=== PATIENT | female | born 1990 | race Caucasian/White ===

== ENCOUNTER 2018-01-25 20:10 | Emergency (ER) | payer MEDICAID ==
--- NOTE | 2018-01-25 21:23 | ED PDOC ---
Arrival/HPI - General Chief Complaint: Female Genitourinary Time Seen by Provider: 01/25/18 20:25 - History of Present Illness Narrative History of Present Illness (Text): 01/25/18 21:21 Patient is a 27 year old female who is P:2, who presents to Emergency department complaining of vaginal spotting which began today and with associated lower abdominal cramp like discomfort. Patient denies any urinary complaints. She also denies any fever, chills, nausea, vomiting, or diarrhea. Patient is without any care to date. Time/Duration: 24 hours (Today) Symptom Onset: Sudden Quality: Cramping (associated abdominal cramping) Context: Home Past Medical History - Provider Review Nursing Documentation Reviewed: Yes - Infectious Disease Hx of Infectious Diseases: None - Reproductive Menopause: No - Psychiatric Hx Substance Use: No - Anesthesia Hx Anesthesia: No Family/Social History - Physician Review Nursing Documentation Reviewed: Yes Family/Social History: No Known Family HX Smoking Status: Unknown If Ever Smoked Hx Alcohol Use: No Hx Substance Use: No Allergies/Home Meds Allergies/Adverse Reactions: Allergies No Known Allergies Allergy (Verified 01/25/18 20:56) Home Medications: Home Meds Medication Instructions Recorded Confirmed No Known Home Med 01/25/18 01/25/18 Review of Systems - Physician Review All systems were reviewed & negative as marked: Yes - Review of Systems Constitutional: absent: Fevers, Night Sweats Gastrointestinal: Abdominal Pain. absent: Diarrhea, Nausea, Vomiting Genitourinary Female: Vaginal Bleeding. absent: Dysuria, Frequency Physical Exam Vital Signs Temp Pulse Resp BP Pulse Ox 01/26/18 01:30 98.1 F 89 16 111/70 99 01/25/18 22:30 88 16 120/70 98 01/25/18 20:50 99.2 F 95 H 18 105/71 100 Temperature: Afebrile Blood Pressure: Normal Pulse: Regular Respiratory Rate: Normal Appearance: Positive for: Well-Appearing Pain Distress: None Mental Status: Positive for: Alert and Oriented X 3 - Systems Exam Head: Present: Atraumatic, Normocephalic Pupils: Present: PERRL Extroacular Muscles: Present: EOMI Conjunctiva: Present: Normal Mouth: Present: Moist Mucous Membranes Neck: Present: Normal Range of Motion Respiratory/Chest: Present: Clear to Auscultation, Good Air Exchange. No: Respiratory Distress, Accessory Muscle Use Cardiovascular: Present: Regular Rate and Rhythm, Normal S1, S2. No: Murmurs Abdomen: No: Tenderness, Distention, Peritoneal Signs Back: Present: Normal Inspection Upper Extremity: Present: Normal Inspection. No: Cyanosis, Edema Lower Extremity: Present: Normal Inspection. No: Edema Neurological: Present: GCS=15, CN II-XII Intact, Speech Normal Skin: Present: Warm, Dry, Normal Color. No: Rashes Psychiatric: Present: Alert, Oriented x 3, Normal Insight, Normal Concentration Medical Decision Making ED Course and Treatment: 01/25/18 22:30 Impression: Patient is a 27 year old female who is experiencing vaginal spotting and associated lower abdominal cramping. Differential Diagnosis included but are not limited to: Threatened vs complete vs ectopic Plan: --Labs --Transvaginal ultrasound -- Reassess and disposition Prior Visits: Notes and results from previous visits were reviewed. Progress Notes: 01/25/18 23:40 EXAM: US First Trimester, Transabdominal US , Transvaginal CLINICAL HISTORY: 27 years old, female; Pain; complicated by abdominal or pelvic pain; Lower; First trimester; Gestational age or lmp: 12/06/2017; ; Additional info: Pain/ bleeding TECHNIQUE: Real-time transabdominal and transvaginal obstetrical ultrasound of the maternal pelvis and a first trimester with image documentation. Transvaginal imaging was used for better evaluation of the fetus and adnexa. COMPARISON: No relevant prior studies available. FINDINGS: Gestation: Single live intrauterine gestation. heart rate of 122 beats per minute. [place]-rump length of 0.8 cm, correlating with gestational age of 6 weeks 5 days. Uterus/cervix: No subchorionic hemorrhage. Closed cervix. Ovaries: Normal ovaries. No adnexal masses. Free fluid: No significant free fluid. IMPRESSION: 1. Single live intrauterine gestation. - Lab Interpretations Lab Results: 01/25/18 22:02 01/25/18 22:02 Lab Results 01/26/18 00:40: Blood Type Confirm B POSITIVE 01/26/18 00:17: Blood Type B POSITIVE, Antibody Screen Negative, BBK History Checked No verified bt 01/25/18 23:27: PT 12.7 H, INR 1.11 H, APTT 30.4 01/25/18 22:02: WBC 7.6, RBC 4.37, Hgb 11.2 L, Hct 34.2 L, MCV 78.3 L, MCH 25.6 , MCHC 32.7, RDW 12.5, Plt Count 321, MPV 9.4 01/25/18 22:02: Beta HCG, Quant 185727.00 H 01/25/18 22:02: Sodium 141, Potassium 3.9, Chloride 104, Carbon Dioxide 23, Anion Gap 18, BUN 12, Creatinine 0.4 L, Est GFR ( Amer) > 60, Est GFR ( Non-Af Amer) > 60, Random Glucose 98, Calcium 9.3, Total Bilirubin 0.2, AST 49 H , ALT 131 H, Alkaline Phosphatase 45, Total Protein 7.6, Albumin 4.4, Globulin 3.2, Albumin/Globulin Ratio 1.4 01/25/18 21:15: Urine Color Yellow, Urine Appearance Clear, Urine pH 6.0, Ur Specific [place] >= 1.030, Urine Protein Trace H, Urine Glucose (UA) Negative, Urine Ketones Trace H, Urine Blood Small H, Urine Nitrate Negative, Urine Bilirubin Negative, Urine Urobilinogen 0.2, Ur Leukocyte Esterase Negative, Urine RBC 1 - 3, Urine WBC 0 - 2, Ur Epithelial Cells 1 - 3, Urine Bacteria Trace I have reviewed the lab results: Yes - RAD Interpretation Radiology Orders: 01/25/18 21:06 OB TRANSVAGINAL [US] Stat Social Media Content Manager: Radiologist - Scribe Statement The provider has reviewed the documentation as recorded by the Wilolwibmelissa Romero Provider Scribe Attestation: All medical record entries made by the Willowibmelissa were at my direction and personally dictated by me. I have reviewed the chart and agree that the record accurately reflects my personal performance of the history, physical exam, medical decision making, and the department course for this patient. I have also personally directed, reviewed, and agree with the discharge instructions and disposition Disposition/Present on Arrival - Present on Arrival Any Indicators Present on Arrival: No History of DVT/PE: No History of Uncontrolled Diabetes: No Urinary Catheter: No History of Decub. 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
[2018-01-25 22:10] LABS: HEMOGLOBIN 11.2 g/dL (12.0-16.0); MEAN CELL VOLUME 78.3 fl (80.0-105.0); MEAN CORPUSCULAR HEMOGLOBIN 25.6 pg (25.0-35.0); MEAN CORPUSCULAR HGB CONC 32.7 g/dl (31.0-37.0); MEAN PLATELET VOLUME 9.4 fl (7.0-11.0); RBC 4.37 10^6/uL (3.5-6.1); RED CELL DISTRIBUTION WIDTH 12.5 % (11.5-14.5); WHITE BLOOD COUNT 7.6 10^3/ul (4.5-11.0)
[2018-01-25 22:20] LABS: ALB/GLOB RATIO 1.4 (1.1-1.8); ALBUMIN 4.4 g/dL (3.0-4.8); ALT/SGPT 131 U/L (7-56); AST/SGOT 49 U/L (14-36); BLOOD UREA NITROGEN 12 mg/dL (7-21); CALCIUM 9.3 mg/dL (8.4-10.5); GFR AFRICAN-AMERICAN > 60; GFR NON-AFRICAN AMERICAN > 60
--- NOTE | 2018-01-25 23:27 | US ---
EXAM: US First Trimester, Transabdominal US , Transvaginal CLINICAL HISTORY: 27 years old, female; Pain; complicated by abdominal or pelvic pain; Lower; First trimester; Gestational age or lmp: 12/06/2017; ; Additional info: Pain/bleeding TECHNIQUE: Real-time transabdominal and transvaginal obstetrical ultrasound of the maternal pelvis and a first trimester with image documentation. Transvaginal imaging was used for better evaluation of the fetus and adnexa. COMPARISON: No relevant prior studies available. FINDINGS: Gestation: Single live intrauterine gestation. heart rate of 122 beats per minute. [place]-rump length of 0.8 cm, correlating with gestational age of 6 weeks 5 days. Uterus/cervix: No subchorionic hemorrhage. Closed cervix. Ovaries: Normal ovaries. No adnexal masses. Free fluid: No significant free fluid. IMPRESSION: 1. Single live intrauterine gestation.
[2018-01-25 23:47] LABS: INR 1.11 (0.93-1.08); PARTIAL THROMBOPLASTIN TIME 30.4 Seconds (25.1-36.5); PROTHROMBIN TIME 12.7 SECONDS (9.4-12.5)
[2018-01-26 00:10] LABS: URINE BILIRUBIN NEGATIVE (NEGATIVE); URINE BLOOD SMALL (NEGATIVE); URINE GLUCOSE (UA) NEGATIVE (NEGATIVE); URINE LEUKOCYTE ESTERASE NEGATIVE Leu/uL (NEGATIVE); URINE PROTEIN TRACE mg/dL (<30 mg/dL); URINE UROBILINOGEN 0.2 E.U./dL (<1 E.U./dL)
[2018-01-26 00:13] LABS: URINE APPEARANCE CLEAR (CLEAR); URINE COLOR YELLOW (YELLOW)
[2018-01-26 00:21] LABS: URINE BACTERIA TRACE (NEG); URINE WBC 0 - 2 /hpf (0-6)
[2018-01-26 02:38] VITALS: BP 111/70; PULSE 89; RESP 16; TEMP 98.1; O2SAT 99
== END 2018-01-26 01:30 | disposition home or self-care (01) ==
LOC: ED 20:10
DX: O20.0 Threatened abortion (principal); Z3A.01 Less than 8 weeks gestation of pregnancy

== ENCOUNTER 2018-03-17 11:55 | Observation (INO) | payer MEDICAID, OTHER ==
[2018-03-17 12:13] VITALS: BMI 21.9
[2018-03-17] MEDS ORDERED: Sodium Chloride 0.9% 1,000 ML IV STA (12:18)
[2018-03-17] MEDS ORDERED: Morphine 4 mg/ml ISec IVP STA ×2 (12:18→14:44)
--- NOTE | 2018-03-17 12:25 | ED PDOC ---
Arrival/HPI - General Chief Complaint: Abdominal Pain Time Seen by Provider: 03/17/18 12:08 Historian: Patient, Spouse ( translating) - History of Present Illness Narrative History of Present Illness (Text): 03/17/18 12:19 Patient is a 27 year old female whose past medical history includes P:0 A:1 2 children, who presents to the Emergency department with her complaining of abdominal pain radiating to her back. Patient is predominately Maltese speaking from [place] and her translated for her. Patient reports that today she started experiencing vomiting and RUQ abdominal pain which radiates to the back. She has had 3 episodes of vomiting and is also experiencing chills, but denies any fever. She admits to experiencing similar pain in the past. Patient also denies any suprapubic pain. Of note patient admits to having a miscarriage 2 days ago at a hospital but doesn't remember the name of the hospital. RADIO MACHINIST: Dr.Mohamed Walker Time/Duration: Other (Today) Symptom Onset: Sudden Symptom Course: Worsening Context: Home Past Medical History - Provider Review Nursing Documentation Reviewed: Yes - Infectious Disease Hx of Infectious Diseases: None - Psychiatric Hx Substance Use: No - Anesthesia Hx Anesthesia: No Family/Social History - Physician Review Nursing Documentation Reviewed: Yes Family/Social History: No Known Family HX Smoking Status: Never Smoked Hx Alcohol Use: No Hx Substance Use: No Allergies/Home Meds Allergies/Adverse Reactions: Allergies No Known Allergies Allergy (Verified 03/17/18 12:17) Home Medications: Home Meds Medication Instructions Recorded Confirmed metroNIDAZOLE [Flagyl] 500 mg PO BID 03/17/18 03/17/18 Review of Systems - Physician Review All systems were reviewed & negative as marked: Yes - Review of Systems Constitutional: Other (chills). absent: Fevers Gastrointestinal: Abdominal Pain, Vomiting Musculoskeletal: Back Pain Physical Exam Vital Signs Reviewed: Yes Vital Signs Temp Pulse Resp BP Pulse Ox 03/17/18 12:07 98.2 F 65 18 104/69 99 Temperature: Afebrile Blood Pressure: Normal Pulse: Regular Respiratory Rate: Normal Appearance: Positive for: Well-Appearing Mental Status: Positive for: Alert and Oriented X 3 - Systems Exam Head: Present: Atraumatic, Normocephalic Pupils: Present: PERRL Extroacular Muscles: Present: EOMI Conjunctiva: Present: Normal Mouth: Present: Moist Mucous Membranes Neck: Present: Normal Range of Motion Respiratory/Chest: Present: Clear to Auscultation, Good Air Exchange. No: Respiratory Distress, Accessory Muscle Use Cardiovascular: Present: Regular Rate and Rhythm, Normal S1, S2. No: Murmurs Abdomen: Present: Tenderness ((+) RUQ tenderness, no lower abdominal tenderness) , Other ((+) Patterson's sign). No: Distention, Peritoneal Signs Back: Present: Normal Inspection Upper Extremity: Present: Normal Inspection. No: Cyanosis, Edema Lower Extremity: Present: Normal Inspection. No: Edema Neurological: Present: GCS=15, CN II-XII Intact, Speech Normal Skin: Present: Warm, Dry, Normal Color. No: Rashes Psychiatric: Present: Alert, Oriented x 3, Normal Insight, Normal Concentration Medical Decision Making ED Course and Treatment: 03/17/18 12:28 Impression: Patient is a 27 year old female who presents to the Emergency department complaining of vomiting and RUQ abdominal pain which radiates to back. Differential Diagnosis included but are not limited to: Gallstones Plan: --Labs --blood work --Abdominal US --Morphine --IV fluids -- Reassess and disposition Prior Visits: Notes and results from previous visits were reviewed. Progress Notes: 03/17/18 14:42 Abdominal US: Creator : Billy Hdz MD IMPRESSION: 1. Findings suspicious for possible cholecystitis. Clinically correlate further. No biliary tree dilatation grossly evident or choledocholithiasis. 2. Partial imaging of the pancreas with the tail obscured by overlying bowel gas and remainder unremarkable appearing. 03/17/18 15:02 Discussed results and images with patient and that patient will likely need surgery. Paged general surgeon . 03/17/18 15:03 Second dose of Morphine IV given for pain control. Discussed case with who recommends patient be admitted to hospitalist service, a HIDA scan and to call the surgical physician assistant. 03/17/18 15:25 I discussed the case with Dr. Larsen who will f/u the HIDA Scan and evaluate the patient. - Lab Interpretations Lab Results: 03/17/18 12:42 03/17/18 12:42 Lab Results 03/17/18 12:42: Sodium 138, Potassium 3.8, Chloride 105, Carbon Dioxide 18 L, Anion Gap 20, BUN 15, Creatinine 0.3 L, Est GFR ( Amer) > 60, Est GFR ( Non-Af Amer) > 60, Random Glucose 113 H, Calcium 9.3, Magnesium 1.6 L, Total Bilirubin 0.6, AST 21, ALT 22, Alkaline Phosphatase 40, Total Protein 7.8, Albumin 4.2, Globulin 3.5, Albumin/Globulin Ratio 1.2, Lipase 80 03/17/18 12:42: PT 11.3, INR 0.99, APTT 27.3 03/17/18 12:42: WBC 8.6, RBC 4.17, Hgb 10.6 L, Hct 32.3 L, MCV 77.5 L, MCH 25.4 , MCHC 32.8, RDW 13.1, Plt Count 328, MPV 9.3, Gran % 79.1 H, Lymph % (Auto) 17.0 L, [place] % (Auto) 3.7, Eos % (Auto) 0.1 L, Baso % (Auto) 0.1, Gran # 6.80 H , Lymph # (Auto) 1.5, [place] # (Auto) 0.3, Eos # (Auto) 0.0, Baso # (Auto) 0.01 I have reviewed the lab results: Yes - RAD Interpretation Radiology Orders: 03/17/18 12:16 ABDOMEN COMPLETE [US] Stat 03/17/18 15:25 BILIARY SCAN (HIDA) [NM] Stat Wastewater Engineer: Radiologist - Medication Orders Current Medication Orders: Piperacillin Sod/Tazobactam Sod (Zosyn 4.5 Gm In Ns 100ml) 4.5 gm in 100 mls @ 200 mls/hr IVPB STAT STA PRN Reason: Protocol Stop: 03/17/18 15:30 Discontinued Medications Sodium Chloride (Sodium Chloride 0.9%) 1,000 mls @ 999 mls/hr IV .Q1H1M STA Stop: 03/17/18 13:18 Last Admin: 03/17/18 12:34 Dose: 999 mls/hr eMAR Start Stop Document 03/17/18 12:34 OCS (Rec: 03/17/18 12:35 OCS [id number]) Intravenous Solution Start Date 03/17/18 Start Time 12:35 End Date 03/17/18 End time 13:36 Total Infusion Time 61 Morphine Sulfate (Morphine) 4 mg IVP STAT STA Stop: 03/17/18 12:19 Last Admin: 03/17/18 12:35 Dose: 4 mg MAR Pain Assessment Document 03/17/18 12:35 OCS (Rec: 03/17/18 12:35 OCS [id number]) Pain Reassessment Is this a pain reassessment? No Sleep Is patient sleeping during reassessment? No Presence of Pain Presence of Pain Yes Pain Scale Used Pain Scale Used Numeric Location Left, Right or Bilateral Right Upper or Lower Upper Pain Location Body Site Abdomen Description Description Constant Intensity of Pain at present 10 Pain Behavior Moaning Crying Irritability Rubbing Site Facial Grimacing Aggravating Factors ADL's IVP Administration Document 03/17/18 12:35 OCS (Rec: 03/17/18 12:35 OCS [id number]) Charges for Administration # of IVP Administrations 1 Morphine Sulfate (Morphine) 4 mg IVP STAT STA Stop: 03/17/18 14:45 Last Admin: 03/17/18 14:57 Dose: 4 mg MAR Pain Assessment Document 03/17/18 14:57 EAR (Rec: 03/17/18 14:58 EAR [id number]) Pain Reassessment Is this a pain reassessment? Yes Sleep Is patient sleeping during reassessment? No Presence of Pain Presence of Pain No Pain Scale Used Pain Scale Used Numeric IVP Administration Document 03/17/18 14:57 EAR (Rec: 03/17/18 14:58 EAR [id number]) Charges for Administration # of IVP Administrations 1 Ondansetron HCl (Zofran Inj) 4 mg IVP STAT STA Stop: 03/17/18 12:36 Last Admin: 03/17/18 12:46 Dose: 4 mg IVP Administration Document 03/17/18 12:46 OCS (Rec: 03/17/18 12:46 OCS [id number]) Charges for Administration # of IVP Administrations 1 - Scribe Statement The provider has reviewed the documentation as recorded by the Scribe Praneeth Romero Provider Scribe Attestation: All medical record entries made by the Scribe were at my direction and personally dictated by me. I have reviewed the chart and agree that the record accurately reflects my personal performance of the history, physical exam, medical decision making, and the department course for this patient. I have also personally directed, reviewed, and agree with the discharge instructions and disposition. Disposition/Present on Arrival - Present on Arrival Any Indicators Present on Arrival: No History of DVT/PE: No History of Uncontrolled Diabetes: No Urinary Catheter: No History of Decub. Ulcer: No History Surgical Site Infection Following: None - Disposition Have Diagnosis and Disposition been Completed?: Yes Diagnosis: Acute cholecystitis Disposition: HOSPITALIZED Disposition Time: 15:11 Patient Plan: Observation Condition: FAIR Forms: [employer] (Danish)
[2018-03-17 12:59] LABS: BASO # 0.01 K/mm3 (0.0-2.0); BASO % 0.1 % (0.0-3.0); EOS % 0.1 % (1.5-5.0); GRAN # 6.8 (1.4-6.5); GRAN % 79.1 % (50.0-68.0); HEMOGLOBIN 10.6 g/dL (12.0-16.0); LYMPH # 1.5 (1.2-3.4); MEAN CELL VOLUME 77.5 fl (80.0-105.0); MEAN CORPUSCULAR HEMOGLOBIN 25.4 pg (25.0-35.0); MEAN CORPUSCULAR HGB CONC 32.8 g/dl (31.0-37.0); MEAN PLATELET VOLUME 9.3 fl (7.0-11.0); MONO # 0.3 (0.1-0.6); MONO % 3.7 % (1.0-6.0); RBC 4.17 10^6/uL (3.5-6.1); RED CELL DISTRIBUTION WIDTH 13.1 % (11.5-14.5); WHITE BLOOD COUNT 8.6 10^3/ul (4.5-11.0)
[2018-03-17 13:10] LABS: ALB/GLOB RATIO 1.2 (1.1-1.8); ALBUMIN 4.2 g/dL (3.0-4.8); ALT/SGPT 22 U/L (7-56); AST/SGOT 21 U/L (14-36); BLOOD UREA NITROGEN 15 mg/dL (7-21); CALCIUM 9.3 mg/dL (8.4-10.5); GFR AFRICAN-AMERICAN > 60; GFR NON-AFRICAN AMERICAN > 60; LIPASE 80 U/L (23-300)
[2018-03-17 13:13] LABS: INR 0.99 (0.93-1.08); PARTIAL THROMBOPLASTIN TIME 27.3 Seconds (25.1-36.5); PROTHROMBIN TIME 11.3 SECONDS (9.4-12.5)
--- NOTE | 2018-03-17 14:40 | US ---
HISTORY: RUQ Patterson's sign r/o cholecystitis r/o renal st COMPARISON: None. TECHNIQUE: Sonographic evaluation of the abdomen. FINDINGS: LIVER: Measures 14.4 cm. Normal echogenicity of the liver parenchyma. No mass. No intrahepatic bile duct dilatation. GALLBLADDER: The gallbladder is distended though this may be physiologic. No pericholecystic fluid collection is evident and there is borderline abnormal thickening although wall up to 3.7 mm. Sludge is well as calculi identified in the lumen with a positive Patterson sign. Clinically correlate for cholecystitis. COMMON BILE DUCT: Measures 4.8 mm. No stones. No dilatation. PANCREAS: The tail of the pancreas is obscured by overlying bowel gas with remainder unremarkable. RIGHT KIDNEY: Measures 10.8cm. Normal echogenicity. No calculus, mass, or hydronephrosis. LEFT KIDNEY: Measures 9.8cm. Normal echogenicity. No calculus, mass, or hydronephrosis. SPLEEN: Normal in size and contour, 9.8 cm greatest dimension. No mass. AORTA: No aneurysmal dilatation. IVC: Unremarkable. OTHER FINDINGS: None. IMPRESSION: 1. Findings suspicious for possible cholecystitis. Clinically correlate further. No biliary tree dilatation grossly evident or choledocholithiasis. . 2. Partial imaging of the pancreas with the tail obscured by overlying bowel gas and remainder unremarkable appearing.
[2018-03-17] MEDS ORDERED: Piperacill/Tazo 4.5gm in NS 4.5 GM/100 ML BAG IVPB STA (15:01)
--- NOTE | 2018-03-17 15:38 | CP.PCM.CON ---
History of Present Illness - History of Present Illness History of Present Illness: General surgery consult note for Dr. Treviño-Diana Cisneros, PGY-1 Pt S & E at bedside at 1520. History as per at bedside and employment educational coord , pt Urdu speaking only. 27F w/PSH sig for recent (03/15/18, currently on Flagyl) consulted for RUQ & epigastric pain x 1 day. Pain is severe, constant, radiates to right back. No alleviating or aggravating factors identified. Admits to one previous episode of the same 4-5 mos ago in [place]- resolved without intervention ; emesis x 5 (nb, bilious/food stuff), nausea, chills, dizziness, decreased appetite (has been eating chicken & soup), some bleeding per vagina. Denies constipation, diarrhea, fevers, changes in urinary habits, pain with spicy or fatty foods, chest pain, SOB, headache, weakness, other complaints. In ED - Afebrile, no leukocytosis. LFTs WNL. Ab U/S w/distended gallbladder, no pericholecystic fluid, wall thickening of 3.7 mm, sludge & calculi w/positive Patterson's sign. CBD 4.8 mm, no stones or dilitation. Last meal was yesterday, last PO intake was 11am- water with pill Called obgyn at 1800 - spoke with Dr. Jade re: performed on 03/15- pt was taken to [facility] for D & C - no complications- pt sent home on Flagyl and Cytotec. PMH: Denies PSH: (03/15/18), x 2 All: NKDA SH: Denies ETOH, tobacco or illicit drug use; lives with and 2 children FH: Denies gallbladder disease or cancer in family Review of Systems - Review of Systems All systems: reviewed and no additional remarkable complaints except - Constitutional Constitutional: Chills. absent: Fever, Weakness - EENT Eyes: absent: Change in Vision Ears: absent: Dizziness Nose/Mouth/Throat: absent: Sore Throat - Cardiovascular Cardiovascular: absent: Chest Pain - Respiratory Respiratory: absent: Cough - Gastrointestinal Gastrointestinal: Abdominal Pain, Nausea, Vomiting. absent: Change in Stool Character, Coffee Ground Emesis, Constipation, Diarrhea, Hematemesis, Hematochezia, Melena - Genitourinary Genitourinary: absent: Change in Urinary Stream, Dysuria, Flank Pain, Pyuria - Musculoskeletal Musculoskeletal: Back Pain (right back) - Integumentary Integumentary: absent: Rash - Neurological Neurological: Dizziness. absent: Weakness - Psychiatric Psychiatric: Change in Appetite (decreased) Past Patient History - Infectious Disease Hx of Infectious Diseases: None - Past Social History Smoking Status: Never Smoked - PSYCHIATRIC Hx Substance Use: No - SURGICAL HISTORY Hx Surgeries: No - ANESTHESIA Hx Anesthesia: No Meds Allergies/Adverse Reactions: Allergies Allergy/AdvReac Type Severity Reaction Status Date / Time No Known Allergies Allergy Verified 03/17/18 18:39 Physical Exam - Constitutional Appears: Non-toxic, No Acute Distress - Head Exam Head Exam: ATRAUMATIC, NORMAL INSPECTION, NORMOCEPHALIC - Eye Exam Eye Exam: EOMI, Normal appearance - ENT Exam ENT Exam: Mucous Membranes Moist, Normal Exam - Neck Exam Neck exam: Positive for: Full Rom, Normal Inspection - Respiratory Exam Respiratory Exam: Clear to Auscultation Bilateral, NORMAL BREATHING PATTERN. absent: Rales, Rhonchi, Wheezes, Respiratory Distress, Stridor - Cardiovascular Exam Cardiovascular Exam: Tachycardia, +S1, +S2 - GI/Abdominal Exam GI & Abdominal Exam: Soft, Tenderness (RUQ, epigastric). absent: Distended, Firm, Guarding, Hernia Additional comments: well healed linear scar over lower abdomen - Extremities Exam Extremities exam: Positive for: normal inspection. Negative for: tenderness - Neurological Exam Neurological exam: Alert, CN II-XII Intact, Oriented x3 - Psychiatric Exam Psychiatric exam: Normal Affect, Normal Mood - Skin Skin Exam: Dry, Intact, Normal Color, Warm Results - Vital Signs Recent Vital Signs: Last Vital Signs Temp 98.2 F 03/17/18 12:07 Pulse 67 03/17/18 15:23 Resp 18 03/17/18 15:23 BP 118/78 03/17/18 15:23 Pulse Ox 99 03/17/18 15:23 - Labs Result Diagrams: 03/17/18 12:42 03/17/18 12:42 Labs: Laboratory Results - last 24 hr 03/17/18 03/17/18 03/17/18 12:42 12:42 12:42 WBC 8.6 RBC 4.17 Hgb 10.6 L Hct 32.3 L MCV 77.5 L MCH 25.4 MCHC 32.8 RDW 13.1 Plt Count 328 MPV 9.3 Gran % 79.1 H Lymph % (Auto) 17.0 L [place] % (Auto) 3.7 Eos % (Auto) 0.1 L Baso % (Auto) 0.1 Gran # 6.80 H Lymph # (Auto) 1.5 [place] # (Auto) 0.3 Eos # (Auto) 0.0 Baso # (Auto) 0.01 PT 11.3 INR 0.99 APTT 27.3 Sodium 138 Potassium 3.8 Chloride 105 Carbon Dioxide 18 L Anion Gap 20 BUN 15 Creatinine 0.3 L Est GFR ( Amer) > 60 Est GFR (Non-Af Amer) > 60 Random Glucose 113 H Calcium 9.3 Magnesium 1.6 L Total Bilirubin 0.6 AST 21 ALT 22 Alkaline Phosphatase 40 Total Protein 7.8 Albumin 4.2 Globulin 3.5 Albumin/Globulin Ratio 1.2 Lipase 80 Assessment & Plan - Assessment and Plan (Free Text) Assessment: 27F w/no sig PMH consulted for RUQ abdominal pain due to cholelithiasis, acute cholecystitis Plan: IVF NPO Pain control Abx Anti-emetic Activity as tolerated Plan for OR today Consent in chart Type & Screen DW attending Amelia, PGY-1 - Date & Time Date: 03/17/18 Time: 15:35
[2018-03-17] MEDS ORDERED: Morphine 4 mg/ml ISec IVP PRN (16:17)
[2018-03-17] MEDS ORDERED: Magnesium Sulfate 2 gm/50 ml 2 GM/50 ML BAG IVPB ONE (16:55)
[2018-03-17] MEDS ORDERED: Bupivacaine 0.5% Inj(30mL) IJ ONE (16:55)
--- NOTE | 2018-03-17 16:57 | CP.PCM.HP ---
<Brendon Toledo - Last Filed: 03/17/18 19:01> History of Present Illness - History of Present Illness History of Present Illness: This is a 27-year-old female with a past medical history of on 03/15/18 by D&C and PO misoprostol two days ago who presents abrupt onsetright upper quadrant pain starting today with nausea and vomiting. She denies any fevers chills chest pain shortness of breath or dysuria. Important to note, patient was prescribed metronidazole and misoprostol which she is still currently taking. On exam patient had severe right upper quadrant tenderness to palpation. As far as her social history, she as a two children. Patient denies any tobacco, alcohol or illicit drug use. Had two C-sections in the past. She does reports still bleeding from the vaginal area. Full history and physical was abbreviated given, per the ED staff the patient needed to be taken emergently to the Operating [facility]. Present on Admission - Present on Admission Any Indicators Present on Admission: No Review of Systems - Review of Systems All systems: reviewed and no additional remarkable complaints except (as per HPI ) Past Patient History - Infectious Disease Hx of Infectious Diseases: None - Past Social History Smoking Status: Never Smoked - PSYCHIATRIC Hx Substance Use: No - SURGICAL HISTORY Hx Surgeries: No - ANESTHESIA Hx Anesthesia: No Meds Allergies/Adverse Reactions: Allergies Allergy/AdvReac Type Severity Reaction Status Date / Time No Known Allergies Allergy Verified 03/17/18 18:39 Physical Exam - Constitutional Appears: In Acute Distress - Head Exam Head Exam: ATRAUMATIC, NORMOCEPHALIC - Eye Exam Eye Exam: EOMI, Normal appearance - ENT Exam ENT Exam: Mucous Membranes Dry - Neck Exam Neck exam: Positive for: Normal Inspection - Respiratory Exam Respiratory Exam: Clear to Auscultation Bilateral, NORMAL BREATHING PATTERN. absent: Accessory Muscle Use - Cardiovascular Exam Cardiovascular Exam: RRR, +S1, +S2 - GI/Abdominal Exam Additional comments: positive murphys, inspiratory arrest with palpation of the gallbaldder - Extremities Exam Extremities exam: Positive for: normal inspection. Negative for: calf tenderness - Back Exam Back exam: NORMAL INSPECTION. absent: CVA tenderness (L), CVA tenderness (R) - Neurological Exam Neurological exam: Alert, CN II-XII Intact, Oriented x3 - Psychiatric Exam Psychiatric exam: Normal Affect, Normal Mood - Skin Skin Exam: Dry, Intact, Normal Color, Warm Results - Vital Signs Recent Vital Signs: Last Vital Signs Temp 98.2 F 03/17/18 12:07 Pulse 67 03/17/18 15:23 Resp 18 03/17/18 15:23 BP 118/78 03/17/18 15:23 Pulse Ox 99 03/17/18 15:23 - Labs Result Diagrams: 03/17/18 12:42 03/17/18 12:42 Assessment & Plan - Assessment and Plan (Free Text) Assessment: 27 year old female with a past medical history significant for recent dilatation and curettage on 03/15 and recently prescriebed misoprostol who presented with acute onset nausea, vomiting, RUQ pain and was found to have acute cholecystis based on abdominal US, history, and physical exam 1) Cholecystitis - Laparascopic cholecystectomy - Morphine 4 mg q4h - Zofran - LR 90 ml/hr - Zosyn - rocephin/flagly starting tomorrow - Protonix 40 IVP daily - SCD 2) Anemia - Likely secondary to recent D&C - Work-up as an outpatient Case reviewed and discussed with Dr. Ferrer - Date & Time Date: 03/17/18 Time: 18:58 <Bruno Ferrer - Last Filed: 03/22/18 07:25> Results - Vital Signs Recent Vital Signs: Last Vital Signs Temp 98.4 F 03/18/18 06:00 Pulse 73 03/18/18 06:00 Resp 20 03/18/18 06:00 BP 110/67 03/18/18 06:00 Pulse Ox 98 03/18/18 06:00 - Labs Result Diagrams: 03/18/18 11:55 03/18/18 06:40 Attending/Attestation - Attestation I have personally seen and examined this patient.: Yes I have fully participated in the care of the patient.: Yes I have reviewed all pertinent clinical information: Yes Notes (Text): 27 year old female who presents with complaint of RUQ pain with nausea and vomiting. US abdomen reviewed which shows acute cholecystitis. Will keep NPO with iv antibiotics, analgesics and antiemetics as needed. Surgery evaluation is requested. Will replete and repeat magnesium. Bruno Ferrer MD Hospitalist.
[2018-03-17] MEDS: Lactated Ringer's 1,000 ML IV SCH (17:02)
[2018-03-17] MEDS ORDERED: Bupivacaine 0.5% Inj(30mL) ONE (17:55)
[2018-03-17] MEDS ORDERED: Iohexol 240 (50 ml) ONE (17:56)
[2018-03-17] MEDS ORDERED: Propofol 10 mg/ml Inj (20 ML) ONE (18:09)
[2018-03-17] MEDS ORDERED: Succinylcholine 200 mg/10 ml Inj IV ONE (18:10)
[2018-03-17] MEDS ORDERED: Rocuronium 10 mg/ml (5 ml) ONE (18:10)
[2018-03-17] MEDS ORDERED: Midazolam 2 MG/2 ML VIAL ONE (18:10)
[2018-03-17] MEDS ORDERED: Lidocaine 2% Inj (20ml) ONE (18:11)
[2018-03-17] MEDS ORDERED: ePHEDrine 50 mg/ml Inj ONE (18:33)
[2018-03-17] MEDS ORDERED: Glycopyrrolate 0.2 mg/ml (2ml vial) ONE (19:52)
[2018-03-17] MEDS ORDERED: HYDROmorphone 0.5 mg/0.5 ml ISec IVP PRN (20:32)
--- NOTE | 2018-03-17 20:32 | PCM.SURG1 ---
Surgeon's Initial Post Op Note - Surgeon's Notes Surgeon: Dr Treviño [employer]: Diana Cisneros, PGY-1 Type of Anesthesia: General Endo Anesthesia Administered By: Dr Guerra Pre-Operative Diagnosis: Cholecystitis, symptomatic cholecystitis Operative Findings: See op report; inflammed gallbladder, cholelithiasis Post-Operative Diagnosis: Cholecystitis, symptomatic cholecystitis Operation Performed: Laparoscopic cholecystectomy with IOC Specimen/Specimens Removed: Gallbladder Estimated Blood Loss: EBL {In ML}: 5 Blood Products Given: N/A Drains Used: No Drains Post-Op Condition: Good Date of Surgery/Procedure: 03/17/18 Time of Surgery/Procedure: 20:32
[2018-03-17] MEDS ORDERED: HYDROmorphone 0.5 mg/0.5 ml ISec IVP ONE (20:34)
[2018-03-17] MEDS ORDERED: HYDROmorphone 0.5 mg/0.5 ml ISec ONE (20:34)
[2018-03-17] MEDS ORDERED: Lactated Ringer's 1,000 ML IV SCH (20:45)
[2018-03-17 21:28] VITALS: O2SAT 98
[2018-03-17] MEDS ORDERED: Pneumococcal 23-Valent Vaccine IM ONE (22:23)
[2018-03-17] MEDS: Oxycodone/Acetaminophen 5/325 mg Tab PO PRN (22:38)
[2018-03-17] MEDS: Benzocaine/Menthol (Cepacol) Lozenge MT PRN (23:01)
[2018-03-17] MEDS: Piperacillin/Tazobact 3.375 gm 100 ML IVPB SCH (23:03)
--- NOTE | 2018-03-18 03:47 | OP ---
PROCEDURE DATE: 03/17/2018 PREOPERATIVE DIAGNOSES: Cholecystitis and cholelithiasis. POSTOPERATIVE DIAGNOSES: Acute cholecystitis and cholelithiasis. PROCEDURE PERFORMED: Laparoscopic cholecystectomy with intraoperative cholangiogram. SURGEON: Wild Treviño MD. FISH SALTER: Dr. Cisneros. ANESTHESIOLOGIST: Dr. Guerra. ANESTHESIA: General endotracheal anesthesia. ESTIMATED BLOOD LOSS: Minimal. SPECIMEN: Gallbladder with gallstones. INDICATIONS: Patient is a 27-year-old female with a history of right upper quadrant abdominal pain, which she apparently had about 6 months earlier as well, which started 2 days ago and increased in intensity and radiated to her back. Patient is also status post in 14-week gestation done on Thursday this week, which is 2 days ago. DESCRIPTION OF PROCEDURE: The patient was brought to the operating room and placed on the operating table in supine position. The patient was connected to EKG, blood pressure, and pulse oximetry monitors. The patient then underwent general endotracheal anesthesia, prepped and draped in usual sterile fashion. First, a standard time-out procedure took place and everybody in the room agreed as to the patient's identity, diagnoses, and procedure to be performed. The operative plan and postoperative care were discussed with the OR team. Using 2 towel clips, the anterior abdominal wall was elevated and a Veress needle was inserted through a small incision superior to the umbilicus. The pneumoperitoneum was obtained and a 12-mm trocar was inserted through that incision into the abdominal cavity. Once, the scope was inserted, the careful evaluation of the abdominal cavity revealed the presence of some adhesions in the lower abdominal cavity secondary to previous C-sections. There was no blood in the abdominal cavity. The gallbladder appeared to be distended and acutely inflamed. I then proceeded with placing a second 5-mm trocar in the subxiphoid position and proceeded with drainage of the gallbladder, which drained about 140 mL of green bile. The gallbladder was now elevated with a grasper and electrocautery was used to detach some omental adhesions to the gallbladder. Once this was done, the infundibulum was elevated and the gallbladder fossa was carefully dissected out by exposing the cystic duct, which was from the surrounding tissue and the cystic artery, which was directly behind it. Once both these structures were cleared, I then proceeded with placing a clip around the proximal cystic duct and made an incision just below it. A cholangiocatheter was inserted into the cystic duct and the cholangiogram was obtained under direct visualization with fluoroscopy revealing the presence of prompt flow of dye into the entire biliary tree and emptying into the duodenum. There was no evidence of obstruction. I then proceeded with removal of the cystic duct cholangiocatheter and then clipped the cystic duct distally and transected it. I also clipped cystic artery and transected it. The gallbladder was taken off the liver bed using electrocautery. Once, completely detached, it was placed in an EndoCatch bag and removed through the periumbilical incision. The area was then copiously irrigated. All the irrigant fluid was suctioned out. There was excellent hemostasis noted. The trocar sites were evaluated and there was no bleeding there as well. The pneumoperitoneum was then released. Trocars removed and the wounds were closed using 0 Vicryl for the fascia, 3-0 Vicryl for the subcutaneous tissue, and 4-0 Monocryl for the skin. A sterile Dermabond dressing was applied to the wound. Patient tolerated the procedure well and there were no complications. Patient was awakened and transferred to the recovery room for further observation. Wild Treviño MD
[2018-03-18] MEDS: Oxycodone/Acetaminophen 5/325 mg Tab PO PRN ×2 (04:27→10:27)
[2018-03-18] MEDS: Benzocaine/Menthol (Cepacol) Lozenge MT PRN ×2 (04:32→10:28)
[2018-03-18] MEDS: Lactated Ringer's 1,000 ML IV SCH (04:35)
[2018-03-18] MEDS: Piperacillin/Tazobact 3.375 gm 100 ML IVPB SCH (05:57)
[2018-03-18 07:08] LABS: BASO # 0.01 K/mm3 (0.0-2.0); BASO % 0.2 % (0.0-3.0); EOS % 0.6 % (1.5-5.0); GRAN # 2.95 (1.4-6.5); GRAN % 47.6 % (50.0-68.0); LYMPH # 2.5 (1.2-3.4); LYMPH % 40.5 % (22.0-35.0); MEAN CELL VOLUME 78.4 fl (80.0-105.0); MEAN CORPUSCULAR HEMOGLOBIN 25.3 pg (25.0-35.0); MEAN CORPUSCULAR HGB CONC 32.3 g/dl (31.0-37.0); MEAN PLATELET VOLUME 9.1 fl (7.0-11.0); MONO # 0.7 (0.1-0.6); MONO % 11.1 % (1.0-6.0); RBC 3.28 10^6/uL (3.5-6.1); RED CELL DISTRIBUTION WIDTH 13.2 % (11.5-14.5); WHITE BLOOD COUNT 6.2 10^3/ul (4.5-11.0)
[2018-03-18 07:16] LABS: HEMOGLOBIN 8.3 g/dL (12.0-16.0)
[2018-03-18 07:22] LABS: ALBUMIN 2.7 g/dL (3.0-4.8); ALT/SGPT 35 U/L (7-56); AST/SGOT 42 U/L (14-36); BLOOD UREA NITROGEN 4 mg/dL (7-21); CALCIUM 7.7 mg/dL (8.4-10.5); GFR AFRICAN-AMERICAN > 60; GFR NON-AFRICAN AMERICAN > 60
[2018-03-18 07:51] VITALS: BP 110/67; PULSE 73; RESP 20; TEMP 98.4
--- NOTE | 2018-03-18 08:16 | CP.PCM.DIS ---
<Jose M Segovia - Last Filed: 03/18/18 14:02> Provider - Provider Date of Admission: 03/17/18 15:11 Attending physician: Bruno Ferrer MD Primary care physician: Jimbo Perkins MD Time Spent in preparation of Discharge (in minutes): 45 Hospital Course - Lab Results Lab Results: Most Recent Lab Values WBC 6.2 10^3/ul (4.5-11.0) D 03/18/18 06:40 RBC 3.28 10^6/uL (3.5-6.1) L 03/18/18 06:40 Hgb 8.3 g/dL (12.0-16.0) L D 03/18/18 06:40 Hct 25.7 % (36.0-48.0) L 03/18/18 06:40 MCV 78.4 fl (80.0-105.0) L 03/18/18 06:40 MCH 25.3 pg (25.0-35.0) 03/18/18 06:40 MCHC 32.3 g/dl (31.0-37.0) 03/18/18 06:40 RDW 13.2 % (11.5-14.5) 03/18/18 06:40 Plt Count 258 10^3/uL (120.0-450.0) 03/18/18 06:40 MPV 9.1 fl (7.0-11.0) 03/18/18 06:40 Gran % 47.6 % (50.0-68.0) L 03/18/18 06:40 Lymph % (Auto) 40.5 % (22.0-35.0) H 03/18/18 06:40 [place] % (Auto) 11.1 % (1.0-6.0) H 03/18/18 06:40 Eos % (Auto) 0.6 % (1.5-5.0) L 03/18/18 06:40 Baso % (Auto) 0.2 % (0.0-3.0) 03/18/18 06:40 Gran # 2.95 (1.4-6.5) 03/18/18 06:40 Lymph # (Auto) 2.5 (1.2-3.4) 03/18/18 06:40 [place] # (Auto) 0.7 (0.1-0.6) H 03/18/18 06:40 Eos # (Auto) 0.0 (0.0-0.7) 03/18/18 06:40 Baso # (Auto) 0.01 K/mm3 (0.0-2.0) 03/18/18 06:40 PT 11.3 SECONDS (9.4-12.5) 03/17/18 12:42 INR 0.99 (0.93-1.08) 03/17/18 12:42 APTT 27.3 Seconds (25.1-36.5) 03/17/18 12:42 Sodium 139 mmol/L (132-148) 03/18/18 06:40 Potassium 3.7 mmol/L (3.6-5.0) 03/18/18 06:40 Chloride 107 mmol/L (98-107) 03/18/18 06:40 Carbon Dioxide 25 mmol/L (21-33) 03/18/18 06:40 Anion Gap 10 (10-20) 03/18/18 06:40 BUN 4 mg/dL (7-21) L 03/18/18 06:40 Creatinine 0.4 mg/dl (0.7-1.2) L 03/18/18 06:40 Est GFR ( Amer) > 60 03/18/18 06:40 Est GFR (Non-Af Amer) > 60 03/18/18 06:40 Random Glucose 118 mg/dL (70-110) H 03/18/18 06:40 Calcium 7.7 mg/dL (8.4-10.5) L 03/18/18 06:40 Magnesium 2.0 mg/dL (1.7-2.2) 03/18/18 06:40 Total Bilirubin 0.4 mg/dL (0.2-1.3) 03/18/18 06:40 AST 42 U/L (14-36) H D 03/18/18 06:40 ALT 35 U/L (7-56) 03/18/18 06:40 Alkaline Phosphatase 28 U/L (38-126) L D 03/18/18 06:40 Total Protein 5.4 g/dL (5.8-8.3) L 03/18/18 06:40 Albumin 2.7 g/dL (3.0-4.8) L 03/18/18 06:40 Globulin 2.7 gm/dL 03/18/18 06:40 Albumin/Globulin Ratio 1.0 (1.1-1.8) L 03/18/18 06:40 Lipase 80 U/L (23-300) 03/17/18 12:42 - Hospital Course Hospital Course: 27F w/PSH sig for recent (03/15/18, currently on Flagyl) consulted for RUQ & epigastric pain x 1 day. Pain is severe, constant, radiates to right back. No alleviating or aggravating factors identified. Admits to one previous episode of the same 4-5 mos ago in [place]- resolved without intervention ; emesis x 5 (nb, bilious/food stuff), nausea, chills, dizziness, decreased appetite (has been eating chicken & soup), some bleeding per vagina. During hospital course patient was taken to the operating room for a cholecystectomy with intraoperative cholangiogram. Patient tolerated the procedure well and was discharged to the PACU in stable condition. Since then pain is well controlled and tolerated regular diet. During morning labs patient Hgb dropped form 10 to 8. Repeat Hgb is 9. Recommend patient to return to the ER if symptoms if light headedness or dizziness occur. Patient is cleared for discharge home on antibiotics. Follow up with Dr. Dinh in one week. Discharge Exam - Head Exam Head Exam: ATRAUMATIC, NORMAL INSPECTION, NORMOCEPHALIC - Eye Exam Eye Exam: EOMI. absent: Scleral icterus - ENT Exam ENT Exam: Mucous Membranes Moist - Respiratory Exam Respiratory Exam: NORMAL BREATHING PATTERN. absent: Accessory Muscle Use, Rales , Rhonchi, Wheezes, Respiratory Distress - Cardiovascular Exam Cardiovascular Exam: +S1, +S2. absent: Bradycardia, Tachycardia - GI/Abdominal Exam GI & Abdominal Exam: Soft, Tenderness (appropriately tender around incision sites). absent: Distended, Firm, Guarding, Hernia, Mass, Rigid Additional comments: 2 port incision site - Extremities Exam Extremities exam: normal inspection - Neurological Exam Neurological exam: Alert, Oriented x3 - Psychiatric Exam Psychiatric exam: Normal Affect - Skin Skin Exam: Intact, Warm Discharge Plan - Discharge Medications Prescriptions: Cephalexin [cephalexin] 500 mg PO BID #10 cap Docusate [Colace] 100 mg PO DAILY #20 cap Ferrous Sulfate 325 mg PO DAILY #20 tablet Ondansetron ODT [Zofran ODT] 4 mg PO Q6 PRN #20 odt PRN Reason: Nausea/Vomiting traMADol [Ultram] 50 mg PO Q8 PRN #14 tab PRN Reason: Pain, Severe (8-10) Tramadol HCl [Ultram] 25 mg PO Q6 PRN #15 tablet PRN Reason: Pain, Severe (8-10) - Follow Up Plan Condition: FAIR Disposition: HOME/ ROUTINE Instructions: Anemia Caused by Low Iron, Adult (DC), Cholecystectomy (DC), Cholecystectomy, Laparoscopic Surgery Additional Instructions: Ok to shower, washing gently with soap and water over incision sites Do not sit in water or take a bath or go swimming The surgical incision sites have glue over them, do not remove- it will fall off on it's own Ok to resume a normal diet If you eat fatty foods, you may have diarrhea- this is normal as your body is adjusting to not having a gallbladder Please take the antibiotic that the Obgyn doctor gave you after your surgery on Thursday in addition to the antibiotic Dr. Treviño wants you to take after this surgery Please make an appointment to follow up with Dr. Treviño in 10-14 days for post operative evaluation Please return to hospital if you start to have fevers or chills, if you can't stop vomiting or if you notice anything coming out of your surgical sites. Referrals: Maddie SAUER,Jimbo [Primary Care Provider] - Wild Treviño MD [Staff Provider] - <Niels Pierson - Last Filed: 03/18/18 17:09> Provider - Provider Date of Admission: 03/17/18 15:11 Attending physician: Bruno Ferrer MD Primary care physician: Jimbo Perkins MD Hospital Course - Lab Results Lab Results: Micro Results 03/17/18 15:40 Blood Blood Culture - Preliminary NO GROWTH AFTER 24 HOURS Most Recent Lab Values WBC 8.0 10^3/ul (4.5-11.0) D 03/18/18 11:55 RBC 3.48 10^6/uL (3.5-6.1) L 03/18/18 11:55 Hgb 8.8 g/dL (12.0-16.0) L 03/18/18 11:55 Hct 27.2 % (36.0-48.0) L 03/18/18 11:55 MCV 78.2 fl (80.0-105.0) L 03/18/18 11:55 MCH 25.3 pg (25.0-35.0) 03/18/18 11:55 MCHC 32.4 g/dl (31.0-37.0) 03/18/18 11:55 RDW 13.4 % (11.5-14.5) 03/18/18 11:55 Plt Count 271 10^3/uL (120.0-450.0) 03/18/18 11:55 MPV 8.9 fl (7.0-11.0) 03/18/18 11:55 Gran % 68.3 % (50.0-68.0) H 03/18/18 11:55 Lymph % (Auto) 22.9 % (22.0-35.0) 03/18/18 11:55 [place] % (Auto) 8.4 % (1.0-6.0) H 03/18/18 11:55 Eos % (Auto) 0.3 % (1.5-5.0) L 03/18/18 11:55 Baso % (Auto) 0.1 % (0.0-3.0) 03/18/18 11:55 Gran # 5.45 (1.4-6.5) 03/18/18 11:55 Lymph # (Auto) 1.8 (1.2-3.4) 03/18/18 11:55 [place] # (Auto) 0.7 (0.1-0.6) H 03/18/18 11:55 Eos # (Auto) 0.0 (0.0-0.7) 03/18/18 11:55 Baso # (Auto) 0.01 K/mm3 (0.0-2.0) 03/18/18 11:55 PT 11.3 SECONDS (9.4-12.5) 03/17/18 12:42 INR 0.99 (0.93-1.08) 03/17/18 12:42 APTT 27.3 Seconds (25.1-36.5) 03/17/18 12:42 Sodium 139 mmol/L (132-148) 03/18/18 06:40 Potassium 3.7 mmol/L (3.6-5.0) 03/18/18 06:40 Chloride 107 mmol/L (98-107) 03/18/18 06:40 Carbon Dioxide 25 mmol/L (21-33) 03/18/18 06:40 Anion Gap 10 (10-20) 03/18/18 06:40 BUN 4 mg/dL (7-21) L 03/18/18 06:40 Creatinine 0.4 mg/dl (0.7-1.2) L 03/18/18 06:40 Est GFR ( Amer) > 60 03/18/18 06:40 Est GFR (Non-Af Amer) > 60 03/18/18 06:40 Random Glucose 118 mg/dL (70-110) H 03/18/18 06:40 Calcium 7.7 mg/dL (8.4-10.5) L 03/18/18 06:40 Magnesium 2.0 mg/dL (1.7-2.2) 03/18/18 06:40 Iron 33 ug/dL (45-180) L 03/18/18 12:30 TIBC 280 ug/dL (265-497) 03/18/18 12:30 % Saturation 12 % (20-55) L 03/18/18 12:30 Total Bilirubin 0.4 mg/dL (0.2-1.3) 03/18/18 06:40 AST 42 U/L (14-36) H D 03/18/18 06:40 ALT 35 U/L (7-56) 03/18/18 06:40 Alkaline Phosphatase 28 U/L (38-126) L D 03/18/18 06:40 Total Protein 5.4 g/dL (5.8-8.3) L 03/18/18 06:40 Albumin 2.7 g/dL (3.0-4.8) L 03/18/18 06:40 Globulin 2.7 gm/dL 03/18/18 06:40 Albumin/Globulin Ratio 1.0 (1.1-1.8) L 03/18/18 06:40 Lipase 80 U/L (23-300) 03/17/18 12:42 Attending/Attestation - Attestation I have personally seen and examined this patient.: Yes I have fully participated in the care of the patient.: Yes I have reviewed all pertinent clinical information, including history, physical exam and plan: Yes Notes (Text): 03/18/18 17:04 Medical record note made by the resident after discussion with my direction and input after the patient was personally seen and examined by me. I have reviewed the chart and agree that the record accurately reflects by personal performance of the history, physical exam, data review, and medical decision-making, in the course for the patient. I have also personally directed the plan of care. 27 Yrs old female, SP cholycystectomy yesterday, tolerating diet. Hemoglobin dropped after surgery but remain stable, she has Microcytic Hypochromic anemia, has H/O recent D/C for 2 days back. Patient is asymptomatic.She denies any headache, dizziness, chest pain or dyspnea. She will be started on oral Iron , will follow up with surgery and OBGYN. Management plan was discussed in detail with patient. Education was provided.
[2018-03-18] MEDS ORDERED: metroNIDAZOLE IV 500 mg/100 ml 500 MG/100 ML BAG IVPB SCH (10:00)
[2018-03-18] MEDS ORDERED: cefTRIAXone 1 gm 1 GM/100 ML BAG IVPB SCH (10:00)
--- NOTE | 2018-03-18 10:29 | CP.PCM.PN ---
Subjective - Date & Time of Evaluation Date of Evaluation: 03/18/18 Time of Evaluation: 07:30 - Subjective Subjective: Patient seen and examined this AM. Patient reports some pain around the incision but no nausea, vomiting, or any other symptoms. Is voiding and pain is well controlled on current regimen, able to ambulate without difficulty Objective - Vital Signs/Intake and Output Vital Signs (last 24 hours): Temp Pulse Resp BP Pulse Ox 98.4 F 73 20 110/67 98 03/18/18 06:00 03/18/18 06:00 03/18/18 06:00 03/18/18 06:00 03/18/18 06:00 Intake and Output: 03/18/18 03/18/18 06:59 18:59 Intake Total 1020 Balance 1020 - Medications Medications: Current Medications Acetaminophen (Tylenol 325mg Tab) 650 mg PO Q6H PRN PRN Reason: Fever >100.4 F Benzocaine/Menthol (Cepacol Sore Throat) 1 jesse MT Q2H PRN PRN Reason: Sore Throat Last Admin: 03/18/18 04:32 Dose: 1 jesse Ondansetron HCl (Zofran Inj) 4 mg IVP Q6H FILOMENA Last Admin: 03/18/18 04:25 Dose: 4 mg Oxycodone/Acetaminophen (Percocet 5/325 Mg Tab) 1 tab PO Q4H PRN PRN Reason: Pain, severe (8-10) Stop: 03/20/18 20:46 Last Admin: 03/18/18 04:27 Dose: 1 tab Pantoprazole Sodium (Protonix Inj) 40 mg IVP DAILY FILOMENA - Labs Labs: 03/18/18 06:40 03/18/18 06:40 PT 11.3 SECONDS (9.4-12.5) 03/17/18 12:42 INR 0.99 (0.93-1.08) 03/17/18 12:42 APTT 27.3 Seconds (25.1-36.5) 03/17/18 12:42 - Constitutional Appears: Well, Non-toxic, No Acute Distress - Head Exam Head Exam: ATRAUMATIC, NORMOCEPHALIC - Eye Exam Eye Exam: Normal appearance. absent: Conjunctival injection, Scleral icterus - ENT Exam ENT Exam: Mucous Membranes Moist, Normal Oropharynx - Respiratory Exam Respiratory Exam: NORMAL BREATHING PATTERN. absent: Accessory Muscle Use, Respiratory Distress - Cardiovascular Exam Cardiovascular Exam: RRR - GI/Abdominal Exam GI & Abdominal Exam: Soft, Tenderness (RUQ and around incisions). absent: Distended Additional comments: incisions well approximated with dermabond, no surrounding erythema, swelling, or drainage - Extremities Exam Extremities Exam: absent: Calf Tenderness, Pedal Edema, Tenderness - Neurological Exam Neurological Exam: Alert, Awake, Oriented x3 - Psychiatric Exam Psychiatric exam: Normal Affect, Normal Mood - Skin Skin Exam: Dry, Intact (except as noted above), Normal Color, Warm Assessment and Plan - Assessment and Plan (Free Text) Assessment: 27F POD#1 s/p laparoscopic cholecystectomy for acute cholecystitis Plan: No further surgical intervention warranted, patient is clear for discharge to home from a surgical standpoint with follow up in Dr. Treviño's office in 2 weeks. Patient should take pain medication as needed with stool softeners to prevents straining. Patient should avoid lifting >15 pounds for 4-6 weeks. Patient may shower and resume normal daily acitivities. Patient should eat a low fat diet Return to ER with any worsened pain, light headedness, dizziness, nausea, vomiting, fevers, chills, or any other concerning symptoms. Discussed with Dr. Kamila Larsen, PGY2
[2018-03-18 12:09] LABS: BASO # 0.01 K/mm3 (0.0-2.0); BASO % 0.1 % (0.0-3.0); EOS % 0.3 % (1.5-5.0); GRAN # 5.45 (1.4-6.5); GRAN % 68.3 % (50.0-68.0); HEMOGLOBIN 8.8 g/dL (12.0-16.0); LYMPH # 1.8 (1.2-3.4); LYMPH % 22.9 % (22.0-35.0); MEAN CELL VOLUME 78.2 fl (80.0-105.0); MEAN CORPUSCULAR HEMOGLOBIN 25.3 pg (25.0-35.0); MEAN CORPUSCULAR HGB CONC 32.4 g/dl (31.0-37.0); MEAN PLATELET VOLUME 8.9 fl (7.0-11.0); MONO # 0.7 (0.1-0.6); MONO % 8.4 % (1.0-6.0); RBC 3.48 10^6/uL (3.5-6.1); RED CELL DISTRIBUTION WIDTH 13.4 % (11.5-14.5)
[2018-03-18 12:50] LABS: IRON 33 ug/dL (45-180)
[2018-03-18 12:59] LABS: % IRON SATURATION 12 % (20-55); TOTAL IRON BINDING CAPACITY 280 ug/dL (265-497)
--- NOTE | 2018-03-20 09:30 | RAD ---
PROCEDURE: Intraoperative cholangiogram HISTORY: Common bile duct obstruction COMPARISON: None TECHNIQUE: Standard protocol for this study/examination. FINDINGS: Total fluoroscopic time (continuous mode) utilized during the procedure (seconds) 26.0. Total exam DLP: (mGy) 3.15. IMPRESSION: Less than 1 hr fluoroscopic time utilized during performance of the procedure.
== END 2018-03-18 15:34 | disposition home or self-care (01) ==
LOC: ED 11:55 → ERH 15:11 → 5RNO 21:49
PROVIDERS: ADMIT Internal Medicine; ATTEND Internal Medicine
DX: K80.12 Calculus of gallbladder with acute and chronic cholecystitis without obstruction (principal); D50.9 Iron deficiency anemia, unspecified
CPT/HCPCS: 36415; 47563; 74300; 76700; 80053; 83540; 83550; 83690; 83735; 85025; 85610; 85730; 87040; 88304; 96361; 96365; 96367; 96375; 96376; 99285; C9113; G0378; J0330; J1170; J2250; J2270; J2405; J2543; J2704; J3010; J7030; J7120; Q9966